=== PATIENT | male | born 1985 | race Caucasian/White ===

== ENCOUNTER 2018-02-13 13:39 | Observation (INO) ==
[2018-02-13] MEDS ORDERED: 0.9 % Sodium Chloride 1,000 ML IVC ONE ×3 (14:41→15:47)
--- NOTE | 2018-02-13 15:02 | Emergency Department Note ---
Disposition Clinical Impression: CORNEL (acute kidney injury) Rhabdomyolysis Qualifiers: Rhabdomyolysis type: non-traumatic Qualified Code(s): M62.82 - Rhabdomyolysis Disposition: Admitted As Inpatient Condition: Good Instructions: Dehydration (ED) Reasons to Return/Additional Instructions: Please follow up with your primary care provider within 48 hours. I have provided [facility] to the [facility]. Please return to the emergency department if you have any worsening of your symptoms including worsening of your body aches, vomiting, changes in mentation, numbness, weakness , tingling or any other symptoms that may be concerning to you. Please continue to hydrate with oral fluids. Referrals: NONE,PCP [Primary Care Provider] - Otf PerrinConversio [Family Provider] - [facility] [Outside] Forms: ED Satisfaction Letter Time of Disposition: 16:04 General Adult HPI - General Chief complaint: ED Weakness Stated complaint: dehydration Time Seen by Provider: 02/13/18 14:18 Source: patient Mode of arrival: ambulatory Limitations: no limitations Nursing Notes Reviewed: Yes Vital Signs Reviewed: Yes - History of Present Illness HPI Narrative: Patient is a 33-year-old male that presents the emergency department with diffuse muscle cramping. Patient states that this is been ongoing since yesterday around lunchtime. 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 His coworker states that she is never seen some as well as much as what he did yesterday. Patient also states that today he felt somewhat lightheaded and dizzy and began to vomit. Patient denies any chest pain or shortness of breath. Patient states that he has been drinking water while at work but may have not been drinking enough. Pain Scale: 4 - Related Data Allergies Allergy/AdvReac Type Severity Reaction Status Date / Time No Known Allergies Allergy Verified 02/13/18 14:50 All systems ED: reviewed and negative except as stated. Cardiovascular: Denies: chest pain Respiratory: Denies: dyspnea Gastrointestinal: Reports: nausea, vomiting. Denies: abdominal pain Musculoskeletal: Reports: other (Diffuse muscle cramping) Past Medical History - Past Medical History Medical history: Reports: non-contributory - Social History Smoking Status: Never smoker Physical Exam - General Limitations: no limitations General appearance: alert, in no apparent distress - Head Head exam: atraumatic, normocephalic - Eye Eye exam: Present: normal appearance, EOMI - Neck Neck exam: Present: normal inspection, full ROM, trachea midline - Respiratory Respiratory exam: Present: normal lung sounds bilaterally. Absent: respiratory distress, wheezes - Cardiovascular Cardiovascular exam: Present: regular rate, normal rhythm, normal heart sounds, +S1, +S2 - Abdominal Exam Abdominal exam: Present: soft, Non-Tender, normal bowel sounds - Neurological Exam Neurological exam: Present: alert, oriented X3 - Psychiatric Psychiatric exam: Present: normal affect - Skin Skin exam: Present: warm, dry, intact Course Vital Signs Temperature 98.5 F 02/13/18 13:39 Pulse Rate 90 02/13/18 13:39 Respiratory Rate 16 02/13/18 13:39 Blood Pressure 116/78 02/13/18 13:39 O2 Sat by Pulse Oximetry 98 02/13/18 13:39 Temperature 98.5 F 02/13/18 13:39 Pulse Rate 73 02/13/18 15:27 Respiratory Rate 14 02/13/18 15:27 Blood Pressure 139/91 02/13/18 15:27 O2 Sat by Pulse Oximetry 98 02/13/18 15:27 Oxygen Delivery Oxygen Delivery Room Air Medical Decision Making - MDM Narrative Medical decision making narrative: Due to the patient presents emergency Department possible dehydration we will obtain a CBC, BMP, CK, EKG and the patient will receive IV fluids here in the emergency department. Patient was given 2 L here in the emergency department and third was ordered once the laboratory testing was resulted. The patient's CK level was greater than 800. He had an elevated creatinine of 3.04. This is consistent with acute kidney injury and rhabdomyolysis. Patient will need to be admitted to the hospital for further evaluation and management and continued IV fluids and a recheck of his creatinine. Called spoke the admitting hospitalist Dr. Ling and he has accepted the patient to their service. Patient will be admitted to at this time for further evaluation and management. - Lab Data Lab results reviewed: Yes I reviewed the patient's lab results. Result diagrams: 02/13/18 14:41 02/13/18 14:41 Lab Results 02/13/18 02/13/18 Range/Units 14:41 14:41 WBC 13.0 H (4.3-11.1) K/mcL RBC 5.43 (4.19-5.50) M/mcL Hgb 17.1 H (12.9-16.9) g/dL Hct 46.8 (37.5-50.1) % MCV 86.2 (83.0-100.0) fL MCH 31.5 (28.0-33.3) pg MCHC 36.5 H (31.6-35.5) g/dL RDW 12.2 (11.5-14.5) % Plt Count 299 (140-400) K/mcL MPV 9.6 (9.4-12.4) fL Immature Gran % 0.6 (0-4) % Seg Neutrophils % 78.2 % Lymphocytes % 15.2 % Monocytes % 5.4 % Eosinophils % 0.3 % Basophils % 0.3 % Neutrophils # 10.1 H (1.6-8.9) K/mcL Lymphocytes # 2.0 (0.6-4.6) K/mcL Monocytes # 0.7 (0.0-1.3) K/mcL Eosinophils # 0.0 (0.0-0.6) K/mcL Basophils # 0.0 (0.0-0.2) K/mcL Sodium 133 L (136-145) mEq/L Potassium 4.0 (3.5-5.1) mEq/L Chloride 94 L (98-107) mEq/L Carbon Dioxide 27 (23-29) mEq/L BUN 33 H (6-20) mg/dL Creatinine 3.04 H (0.70-1.30) mg/dL Est GFR ( Amer) 29 L (> 60) Est GFR (Non-Af Amer) 24 L (> 60) BUN/Creatinine Ratio 11 (6-26) Glucose 74 (70-105) mg/dL Calculated Osmolality 282 (280-300) Calcium 11.4 H (8.6-10.3) mg/dL Creatine Kinase 874 H (30-223) Units/L - Radiology Data Radiology results reviewed: Yes I reviewed the patient's radiology results. - EKG Data EKG #1 EKG attestation: Yes I reviewed and interpreted this EKG. EKG results narrative: EKG showed a sinus rhythm at a rate of 80 bpm, DC interval of 136, QRS duration 95, QTC of 384 with a normal axis. No evidence of STEMI on EKG.
[2018-02-13 15:10] LABS: Basophils % 0.3 %; Eosinophils % 0.3 %; Hematocrit 46.8 % (37.5-50.1); Hemoglobin 17.1 g/dL (12.9-16.9); Immature Granulocytes % 0.6 % (0-4); Lymphocytes % 15.2 %; Mean Corpuscular HGB Conc 36.5 g/dL (31.6-35.5); Mean Corpuscular Hemoglobin 31.5 pg (28.0-33.3); Mean Corpuscular Volume 86.2 fL (83.0-100.0); Mean Platelet Volume 9.6 fL (9.4-12.4); Monocytes # 0.7 K/mcL (0.0-1.3); Monocytes % 5.4 %; Neutrophils # 10.1 K/mcL (1.6-8.9); Platelet Count 299 K/mcL (140-400); Red Blood Count 5.43 M/mcL (4.19-5.50); Red Cell Distribution Width 12.2 % (11.5-14.5); Segmented Neutrophils % 78.2 %
--- NOTE | 2018-02-13 15:24 | Emergency Department Note ---
Disposition Clinical Impression: CORNEL (acute kidney injury), Rhabdomyolysis Disposition: Admitted As Inpatient Condition: Good General Adult HPI - General Chief complaint: ED Weakness Stated complaint: dehydration Time Seen by Provider: 02/13/18 14:18 Source: patient Mode of arrival: ambulatory Limitations: no limitations - History of Present Illness Pain Scale: 4 - Related Data Home Medications Medication Instructions Recorded Confirmed No Known Home Drugs 02/13/18 02/13/18 Allergies Allergy/AdvReac Type Severity Reaction Status Date / Time No Known Allergies Allergy Verified 02/13/18 14:50 Cardiovascular: Denies: chest pain Respiratory: Denies: dyspnea Gastrointestinal: Reports: nausea, vomiting. Denies: abdominal pain Musculoskeletal: Reports: other (Diffuse muscle cramping) Past Medical History - Past Medical History Medical history: Reports: non-contributory - Social History Smoking Status: Never smoker Physical Exam - General Limitations: no limitations General appearance: alert, in no apparent distress Course Vital Signs Temperature 98.5 F 02/13/18 13:39 Pulse Rate 90 02/13/18 13:39 Respiratory Rate 16 02/13/18 13:39 Blood Pressure 116/78 02/13/18 13:39 O2 Sat by Pulse Oximetry 98 02/13/18 13:39 Temperature 98.5 F 02/13/18 13:39 Pulse Rate 73 02/13/18 15:27 Respiratory Rate 16 02/13/18 18:15 Blood Pressure 137/76 02/13/18 18:15 O2 Sat by Pulse Oximetry 98 02/13/18 15:27 Oxygen Delivery Oxygen Delivery Room Air Medical Decision Making - Lab Data Result diagrams: 02/13/18 14:41 02/13/18 14:41 Lab Results 02/13/18 02/13/18 02/13/18 Range/Units 14:41 14:41 14:41 WBC 13.0 H (4.3-11.1) K/mcL RBC 5.43 (4.19-5.50) M/mcL Hgb 17.1 H (12.9-16.9) g/dL Hct 46.8 (37.5-50.1) % MCV 86.2 (83.0-100.0) fL MCH 31.5 (28.0-33.3) pg MCHC 36.5 H (31.6-35.5) g/dL RDW 12.2 (11.5-14.5) % Plt Count 299 (140-400) K/mcL MPV 9.6 (9.4-12.4) fL Immature Gran % 0.6 (0-4) % Seg Neutrophils % 78.2 % Lymphocytes % 15.2 % Monocytes % 5.4 % Eosinophils % 0.3 % Basophils % 0.3 % Neutrophils # 10.1 H (1.6-8.9) K/mcL Lymphocytes # 2.0 (0.6-4.6) K/mcL Monocytes # 0.7 (0.0-1.3) K/mcL Eosinophils # 0.0 (0.0-0.6) K/mcL Basophils # 0.0 (0.0-0.2) K/mcL Sodium 133 L (136-145) mEq/L Potassium 4.0 (3.5-5.1) mEq/L Chloride 94 L (98-107) mEq/L Carbon Dioxide 27 (23-29) mEq/L BUN 33 H (6-20) mg/dL Creatinine 3.04 H (0.70-1.30) mg/dL Est GFR ( Amer) 29 L (> 60) Est GFR (Non-Af Amer) 24 L (> 60) BUN/Creatinine Ratio 11 (6-26) Glucose 74 (70-105) mg/dL Calculated Osmolality 282 (280-300) Calcium 11.4 H (8.6-10.3) mg/dL Creatine Kinase 874 H (30-223) Units/L TSH 4.656 (0.340-5.600) mcIU/mL PTH Intact 43.1 (10.0-65.0) pg/ml Critical Care Time Critical Care Time: Yes Total Critical Care Time: 35 Attestation: Critical care performed: Time is exclusive of separately billable procedures. Time includes: direct patient care, patient reassessment, coordination of patient care, interpretation of data (laboratory data, radiology data, and respiratory data), review of patient's medical records, medical consultation and documentation of patient care. Procedures included in critical care time: Procedures excluded from critical care time: Attestation Statement - Attestation Attestation: I examined this patient and my medical decision-making was reviewed with the Resident Physician. I agree with the documented findings, disposition and treatment plan as described except to the extent set forth below. Patient presents to the ED with a chief complaint of dehydration. He complains of diffuse cramps. 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 States he swallowed a lot yesterday. Now is cramping all over. On exam he is in no acute distress. Appreciate any generalized cramping. Heart regular lungs clear. Plan. Basic labs abutting a CPK. IV hydration. Patient with a significant acute kidney injury. CK elevated at 800. Will admit for further IV hydration and rechecks of his kidney function.
[2018-02-13 15:29] LABS: Calcium 11.4 mg/dL (8.6-10.3)
[2018-02-13] MEDS ORDERED: Naloxone 0.4 MG/ML INJ IVP PRN (16:11)
[2018-02-13 16:49] LABS: Thyroid Stimulating Hormone 4.656 mcIU/mL (0.340-5.600)
[2018-02-13] MEDS: 0.9 % Sodium Chloride 1,000 ML IVC SCH (18:01)
--- NOTE | 2018-02-13 18:01 | Internal Med History&Physical ---
Date of Encounter: 02/13/18 Time of Encounter: 15:50 Internal Medicine - H&P: HPI Chief complaint: generalized muscle cramp History of present illness: Mr. Montenegro is a 33 year old male with no significant past medical history presented to the ED with 1 day history of generalized muscle cramping. 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 He has been sweating more than usual and noticed decrease in urine output as well. Today, he felt lightheaded and had few episodes of vomiting. No chest pain, fever/chills, SOB, abdominal pain, altered sensorium. No joint pain or rash. In the ED, he was afebrile and hemodynamically stable. LAbs revealed significant Cr elevation to 3.04 with BUN 33, CPK 874 and Ca of 11.4. Leukocytosis of 13. He was given 3L of IVF with symptomatic relief and is admitted for further management. Past Med Surg Social Fam HX - Past Medical History Attestation: Yes The following information was validated with the patient. Medical history: non-contributory - Social History Smoking Status: Never smoker Internal Medicine - H&P: Meds No Known Home Drugs 02/13/18 [History] 3 Allergy/AdvReac Type Severity Reaction Status Date / Time No Known Allergies Allergy Verified 02/13/18 14:50 All Systems PM: A 10-system review of systems was performed and is negative for pertinent findings except as documented above in the HPI. - Constitutional Vitals: Temp Pulse Resp BP Pulse Ox 98.5 F 73 14 139/91 98 02/13/18 13:39 02/13/18 15:27 02/13/18 15:27 02/13/18 15:27 02/13/18 15:27 Exam: General: Alert and oriented HEENT:EOM, pupils equal, round, and reactive. Dry oral mucosa Cardiovascular:Normal S1 & S2, no murmurs or gallops. No JVD. Pulse regular. Lungs:Normal breath sounds, no wheezes or crackles. Abdomen:Soft, non-tender, no rigidity. Extremities:No deformity, no edema or tenderness, no joint swelling. Neurological:Normal cognition and motor skills. Skin:Normal color, no rash, no lesions. Pulses:Carotid and radial pulses normal +2. Rest of the physical exam is non-contributory Internal Med - H&P Results - Labs CBC & Chem 7: 02/13/18 14:41 02/13/18 14:41 - Assessment and plan (1) Rhabdomyolysis Current Visit: Yes Status: Acute Assessment and plan: likely due to prolonged periods of exertion in hot weather complicated by severe CORNEL IVF and monitor Qualifiers: Rhabdomyolysis type: non-traumatic Qualified Code(s): M62.82 - Rhabdomyolysis (2) Hypercalcemia Current Visit: Yes Status: Acute Assessment and plan: ?etiology, no family history of endocrinopathy check PTH IVF as above (3) CORNEL (acute kidney injury) Current Visit: Yes Status: Acute Assessment and plan: likely pre-renal check bladder scan IVF and monitor - Time Spent With Patient Total time spent is greater than 50% in coordination of care (as documented) at patient's floor/unit and/or counseling patient:
[2018-02-14] MEDS: 0.9 % Sodium Chloride 1,000 ML IVC SCH (05:05)
[2018-02-14 05:47] LABS: Basophils % 0.3 %; Eosinophils # 0.1 K/mcL (0.0-0.6); Eosinophils % 1.6 %; Hematocrit 37.6 % (37.5-50.1); Immature Granulocytes % 0.4 % (0-4); Lymphocytes # 2.7 K/mcL (0.6-4.6); Lymphocytes % 35.9 %; Mean Corpuscular HGB Conc 35.6 g/dL (31.6-35.5); Mean Corpuscular Hemoglobin 32.3 pg (28.0-33.3); Mean Corpuscular Volume 90.6 fL (83.0-100.0); Mean Platelet Volume 9.5 fL (9.4-12.4); Monocytes # 0.6 K/mcL (0.0-1.3); Monocytes % 8.1 %; Platelet Count 200 K/mcL (140-400); Red Blood Count 4.15 M/mcL (4.19-5.50); Red Cell Distribution Width 12.4 % (11.5-14.5); Segmented Neutrophils % 53.7 %
[2018-02-14 05:48] LABS: Hemoglobin 13.4 g/dL (12.9-16.9)
[2018-02-14 06:05] LABS: BUN/Creatinine Ratio 16 (6-26); Blood Urea Nitrogen 21 mg/dL (6-20); Calcium 8.6 mg/dL (8.6-10.3); Carbon Dioxide 24 mEq/L (23-29); Chloride 108 mEq/L (98-107); Glucose 103 mg/dL (70-105); Magnesium 2.2 mg/dL (1.6-2.6); Osmolality,Calculated 291 (280-300); Sodium 139 mEq/L (136-145); eGFR For Non-African Americans > 60 (> 60)
[2018-02-14 08:54] VITALS: BP 115/74
[2018-02-14 11:55] LABS: Amphetamine Screen,Urine Negative ng/mL (Cutoff=1000); Barbiturate Screen,Urine Negative ng/mL (Cutoff=200); Benzodiazepines Screen,Urine Negative ng/mL (Cutoff=200); Cannabinoid Screen,Urine Negative ng/mL (Cutoff = 50); Cocaine Screen,Urine Negative ng/mL (Cutoff= 300); Opiate Screen,Urine Negative ng/mL (Cutoff=300); Phencyclidine Screen,Urine Negative ng/mL (Cutoff=25)
--- NOTE | 2018-02-14 12:21 | Discharge Summary ---
- NOTES TO OUTPATIENT PROVIDER Notes to Outpatient Provider: Patient hospitalized with acute dehydration, acute kidney injury and mild rhabdomyolysis. Symptoms improved with IV hydration. He is clinically stable to be discharged home. Date of Encounter: 02/14/18 Time of Encounter: 10:30 - Discharge Diagnosis (1) CORNEL (acute kidney injury) Priority: Primary Status: Acute (2) Rhabdomyolysis Priority: Secondary Status: Acute Qualifiers: Rhabdomyolysis type: non-traumatic Qualified Code(s): M62.82 - Rhabdomyolysis (3) Hypercalcemia Priority: Secondary Status: Acute Hospital course: Mr. Montenegro is a 33 year old male Patient with no significant past medical history was hospitalized with acute dehydration, acute kidney injury and mild rhabdomyolysis after he had been working outside in the heat with little hydration. Symptoms improved with IV hydration. He is clinically stable to be discharged home. Discharge discussed with: patient, nurse, case management - Time Spent with Patient Total time spent providing and/or coordinating discharge services: Less than 30 minutes (25 min) - Discharge Medications Home Medications: No Known Home Drugs 02/13/18 [History] Allergies/Adverse Reactions: 3 Allergy/AdvReac Type Severity Reaction Status Date / Time No Known Allergies Allergy Verified 02/13/18 14:50 Date of admission: 02/13/18 17:41 Primary care physician: PCP NONE Discharging clinician: Real Purdy Anticipated date of discharge: 02/14/18 - Constitutional Vitals: Temp Pulse Resp BP Pulse Ox 98.0 F 58 18 115/74 98 02/14/18 08:54 02/14/18 08:54 02/14/18 08:54 02/14/18 08:54 02/14/18 08:54 General appearance: Present: cooperative, A&O X 3, answers questions appropriately - Respiratory Respiratory exam: Present: CTAB. Absent: accessory muscle use, rales, rhonchi, wheezes - Cardiovascular Cardiovascular exam: Present: RRR, +S1, +S2. Absent: diastolic murmur, gallop, rubs, systolic murmur - GI/Abdominal GI/Abdominal exam: Present: normal bowel sounds, soft, no peritoneal signs. Absent: distended, tenderness - Patient Status Disposition: Home, Self-Care Condition: Good Functional capacity at discharge: independent ambulation Overall status at discharge: patient is progressing back to baseline - Discharge Instructions Instructions: Rhabdomyolysis (DC) Follow Up With: NONE,PCP [Primary Care Provider] - Corinne Perrin [Family Provider] - (Follow up with PCP in 1 week) Additional Instructions: Drink plenty of fluids. - Diet and Activity Activity: increase activity as tolerated, return to work once cleared by your PCP/specialist (02/18) Diet: advance to your usual diet
--- NOTE | 2018-02-14 16:47 | Electrocardiograph Report ---
[place] [id number] Test Date: 2018-02-13 Pat Name: Jamel Montenegro Department: 104 Room: 2A Gender: M [employer] Scientist: : 1985 Requested By: Antoni King Order Number: [id number] Reading MD: Bebeto Obrien Measurements Intervals [place] Rate: 80 P: 61 WA: 136 QRS: 64 QRSD: 95 T: 63 QT: 347 QTc: 384 Interpretive Statements SINUS RHYTHM LEFT VENTRICULAR HYPERTROPHY Electronically Signed On 02-14-2018 16:45:51 EDT by Bebeto Obrien
== END 2018-02-14 13:20 | disposition home or self-care (01) ==
LOC: EMEROO 13:39 → 2ANU 13:39 → SUATTDRO 17:41 → 2ANU 18:24
PROVIDERS: ADMIT Internal Medicine; ATTEND Internal Medicine